=== PATIENT | female | born 1970 | race Caucasian/White ===

== ENCOUNTER 2016-07-13 10:41 | Emergency (ER) | payer SELFPAY ==
[2016-07-13 11:17] VITALS: RESP 18
--- NOTE | 2016-07-13 11:22 | ED ---
General Adult HPI - General Chief complaint: ENT Stated complaint: ear pain Time Seen by Provider: 07/13/16 11:08 Source: patient, RN notes reviewed Mode of arrival: ambulatory Limitations: no limitations - History of Present Illness Initial comments: Patient 46-year-old female who presents emergency room today with a chief complaint of decreased hearing out of the right ear. She does admit to a cerumen impaction. States she gets chronic cerumen impactions after upper respiratory infectious. States she just getting over an upper respiratory infection. States had decreased hearing out of the right ear. States she does not use Q-tips. States has had this problem several times in the past and has had need to have them flushed. She denies any other complaints or associated symptoms. Patient denies any recent fever, chills, shortness of breath, chest pain, back pain, abdominal pain, nausea or vomiting, numbness or tingling, dysuria or hematuria, constipation or diarrhea, headaches or visual changes, or any other complaints. - Related Data Home Medications Medication Instructions Recorded Confirmed No Known Home Medications [No 07/13/16 07/13/16 Known Home Medications] Allergies Allergy/AdvReac Type Severity Reaction Status Date / Time No Known Allergies Allergy Unverified 07/13/16 11:12 Review of Systems ROS Statement: Those systems with pertinent positive or pertinent negative responses have been documented in the HPI. ROS Other: All systems not noted in ROS Statement are negative. Past Medical History Past Medical History: No Reported History History of Any Multi-Drug Resistant Organisms: None Reported Past Surgical History: Cholecystectomy, Tubal Ligation Additional Past Surgical History / Comment(s): uterine surg eye Past Psychological History: No Psychological Hx Reported Smoking Status: Never smoker Past Alcohol Use History: Occasional Past Drug Use History: None Reported General Exam - General Exam Comments Initial Comments: General: The patient is awake and alert, in no distress, and does not appear acutely ill. Eye: Pupils are equal, round and reactive to light, extra-ocular movements are intact. No nystagmus. There is normal conjunctiva bilaterally. No signs of icterus. Ears, nose, mouth and throat: There are moist mucous membranes and no oral lesions. Bilateral cerumen impaction Neck: The neck is supple, there is no tenderness or JVD. Cardiovascular: There is a regular rate and rhythm. No murmur, rub or gallop is appreciated. Respiratory: Lungs are clear to auscultation, respirations are non-labored, breath sounds are equal. No wheezes, stridor, rales, or rhonchi. Musculoskeletal: Normal ROM, no tenderness. Strength 5/5. Sensation intact. Pulses equal bilaterally 2+. Neurological: A&O x 3. CN II-XII intact, There are no obvious motor or sensory deficits. Coordination appears grossly intact. Speech is normal. Skin: Skin is warm and dry and no rashes or lesions are noted. Psychiatric: Cooperative, appropriate mood & affect, normal judgment. Limitations: no limitations Course Vital Signs 07/13/16 11:07 Temperature 97.1 F L Pulse Rate 97 Respiratory 18 Rate Blood Pressure 109/70 O2 Sat by Pulse 99 Oximetry Medical Decision Making - Medical Decision Making Patient reexamined here in the emergency room shows no signs of distress. Patient's ears were flushed. The emergency room by nursing staff is feeling much better. Ear canals are clear. Patient will be discharged home. Disposition Clinical Impression: Bilateral impacted cerumen Disposition: HOME SELF-CARE Condition: Good Instructions: Cerumen Impaction (ED) Additional Instructions: Please follow-up with family doctor in the next 2 days of symptoms have not improved. Please return to emergency room if the symptoms increase or worsen or for any other concerns. Time of Disposition: 12:31
[2016-07-13 12:41] VITALS: BP 111/73; PULSE 90; TEMP 97
== END 2016-07-13 12:42 | disposition home or self-care (01) ==
LOC: EC 10:41
DX: H61.23 Impacted cerumen, bilateral (principal)
CPT/HCPCS: 99282

== ENCOUNTER → 2016-09-07 | Outpatient (CLI) | payer OTHER ==
--- NOTE | 2016-09-10 08:17 | MM ---
Reason for exam: screening (asymptomatic). Baseline mammogram. Physical Findings: Nurse did not find any significant physical abnormalities on exam. MG Screening Mammo w CAD Bilateral CC and MLO view(s) were taken. The breast tissue is heterogeneously dense. This may lower the sensitivity of mammography. There is no discrete abnormality. These results were verbally communicated with the patient and result sheet given to the patient on 09/07/16. ASSESSMENT: Negative, BI-RAD 1 RECOMMENDATION: Routine screening mammogram of both breasts in 1 year.
== END | disposition home or self-care (01) ==
LOC: RADMAMWWP 12:45
PROVIDERS: ATTEND Internal Medicine
DX: Z12.31 Encounter for screening mammogram for malignant neoplasm of breast (principal)

== ENCOUNTER → 2016-12-26 | Outpatient (CLI) | payer OTHER ==
--- NOTE | 2016-12-26 09:23 | MR ---
EXAMINATION TYPE: MR brain/cspine wo DATE OF EXAM: 12/26/2016 COMPARISON: NONE HISTORY: headaches, cervicalgia CONTRAST: Performed utilizing 0 mL intravenous MultiHance gadolinium contrast. TECHNIQUE: Multiplanar, multisequence imaging of the brain is performed on a 3.0 Ana Rosa magnet. Demye linating disease protocol with additional Sagittal Flair sequence is performed. Study is performed wi thin 24 hours of arrival to the hospital. FINDINGS: T2 White Matter Lesions Present : Yes Approximate Number of Lesions: Multiple scattered Locations Identified : Subcortical regions bilateral cerebrum Size of Largest Lesion(s): 1. 0.3 x 0.4 x 0.4 cm. Location: Right watershed region subcortical white matter Sequence 501 Image 19 (axial) and Sequence 601 Image 20 (coronal). 2. 0.6 x 1.0 x 0.2 cm. Location: Subcortical white matter left parietal lobe Sequence 501 Image 20 (axial) and Sequence 601 Image 14 (coronal). Enhancing Lesion(s) Present: Noncontrast study. Change from Prior: No prior Diffusion-weighted imaging is performed. No abnormal hyperintensity is present to suggest an acute i ntracranial infarct or acute ischemic change. Ventricles and sulci are appropriate for the patient age. There are no abnormal extra-axial fluid collections. The ventricular system and cisternal spaces are normal in size and appearance. The brain volume is age appropriate. The craniocervical junction ernesto ears within normal limits. The dural venous sinuses appear patent. . The visualized sinuses are clear. Visualized orbits are unremarkable. IMPRESSION: 1. Multiple bilateral scattered subcortical and deep white matter changes. These findings are nonspe cific. Differential could include, but is not limited to, etiologies such as multiple sclerosis, Lyme disease, vasculitis. MRI CERVICAL SPINE: CLINICAL HISTORY: Cervalgia TECHNIQUE: Multiplanar, multisequence imaging of the cervical spine is performed without and with IV contrast, 0 milliliters of gadolinium was given intravenously. COMPARISON: None. HISTORY: headaches, cervicalgia CONTRAST: Performed utilizing 0 mL intravenous MultiHance gadolinium contrast. TECHNIQUE: Multiplanar multiecho imaging on a 3.0 Ana Rosa magnet is performed through the cervical spin e. FINDINGS: The craniovertebral junction is normal. Vertebral body alignment is normal. No cord signal abnormality is evident. C7-T1: Mild left paracentral disc bulge has mild anterior thecal sac compression. No AP spinal canal stenosis is present. Neural foramen are patent.. C6-7: There is a large central disc herniation with moderate anterior thecal sac compression. Some mi ld cord contact without cord deformity may be present. No AP spinal canal stenosis present. Mild bila teral foraminal narrowing is present.. C5-6: Broad-based disc bulge is present with anterior thecal sac compression. This has cord contact a nd may have some mild cord flattening. No AP spinal canal stenosis present. Neural foramen are patent .. C4-5: There is a left paracentral disc herniation with moderate anterior thecal sac compression. No c ord contact or spinal canal stenosis present. Neural foramen are patent.. C3-4: Minimal disc bulge has anterior thecal sac flattening. No cord contact or spinal canal stenosis present. Neural foramen are patent.. C2-3: No focal disc herniation or significant disc bulge is evident. No spinal canal stenosis or alissa ral foraminal stenosis is present. Note is made of a cyst like area within the right lobe thyroid. This measures 1.2 x 1.6 cm in the ri ght lobe thyroid, previously not as hyperintense as expected for a simple cyst. Additional evaluation with ultrasound thyroid is recommended. IMPRESSIONS: 1. C4-5 left paracentral disc herniation with moderate anterior thecal sac compression. 2. Central disc bulging C5-6 with moderate anterior thecal sac compression and cord contact. 3. Central disc herniation with cord contact without deformity. 4. Fluidlike structure within the right lobe thyroid is not a simple cyst by MRI, additional evaluati on with ultrasound with attention of the right lobe thyroid is recommended.
== END | disposition home or self-care (01) ==
LOC: RADMRIMAIN 06:03
PROVIDERS: ATTEND Psychiatry & Neurology Neurology
DX: M50.221 Other cervical disc displacement at C4-C5 level (principal); R90.89 Other abnormal findings on diagnostic imaging of central nervous system
CPT/HCPCS: 70551; 72141

== ENCOUNTER → 2017-03-28 | Outpatient (CLI) | payer OTHER ==
--- NOTE | 2017-03-28 12:59 | US ---
EXAMINATION TYPE: US thyroid st tissue head/neck DATE OF EXAM: 03/28/2017 COMPARISON: MRI 12/26/2016 CLINICAL HISTORY: 46-year-old female E4.1 THYROID CYST ON MRI. TECHNIQUE: Multiple sonographic images of the thyroid gland are obtained. FINDINGS: GLAND SIZE: Right Lobe: 4.5 X 1.5 X 2.1 cm Overall Parenchyma: homogenous Left Lobe: 4.4 x 0.9 x 1.5 cm Overall Parenchyma: homogenous Isthmus Thickness: 0.3 cm NODULES RIGHT: # of nodules measured on right: 2 1. 2.4 X 1.4 x 1.5 cm solid hypoechoic nodule at the mid pole with well-defined margins; . This no dule is wider than tall and shows intranodular vascularity. Prior size: MRI 2.3 x 1.2 x 1.6 cm 2. 0.3 X 0.2 x 0.2 cm small hypoechoic nodule at the upper pole with well-defined margins; . This n odule is wider than tall and shows intranodular vascularity. Prior size: no prior LEFT: # of nodules measured on left: 1 1. 0.4 X 0.3 x 0.7 cm heterogeneous oval nodule at the mid pole with well-defined margins; . This nodule is wider than tall and shows intranodular vascularity. Prior size: no prior ISTHMUS: # of nodules measured in the isthmus: 0 Bilateral neck scanned, no evidence of lymphadenopathy. IMPRESSION: Dominant solid nodule measuring 2.4 cm in the right lobe. FNA can be considered.
== END | disposition home or self-care (01) ==
LOC: RADUSWWP 09:39
PROVIDERS: ATTEND Psychiatry & Neurology Neurology
DX: E04.1 Nontoxic single thyroid nodule (principal)
CPT/HCPCS: 76536

== ENCOUNTER 2017-06-17 20:06 | Emergency (ER) | payer OTHER ==
[2017-06-17 20:22] VITALS: RESP 18
[2017-06-17] MEDS ORDERED: SODIUM CHLORIDE 0.9% 1,000 ML IV ONE (20:37)
[2017-06-17] MEDS ORDERED: METOCLOPRAMIDE 5 MG/ML 2 ML VIAL IVP STA (20:37)
[2017-06-17] MEDS ORDERED: DEXAMETHASONE SOD PHOSPHATE 10 MG/ML 1 ML VIAL IV STA (20:37)
[2017-06-17] MEDS ORDERED: diphenhydrAMINE 50 MG/ML 1 ML VIAL IVP STA (20:37)
[2017-06-17] MEDS ORDERED: KETOROLAC 30 MG/ML 1 ML VIAL IVP STA (20:37)
--- NOTE | 2017-06-17 20:40 | ED ---
General Adult HPI - General Chief complaint: Recheck/Abnormal Lab/Rx Stated complaint: tingling Time Seen by Provider: 06/17/17 20:18 Source: EMS Mode of arrival: EMS Limitations: no limitations - History of Present Illness Initial comments: patient is a 47-year-old female who presents with a chief complaint of tingling and headache. Patient states she has had a migraine headache for 2 days. She is a history of migraine headaches. She states that today when she was at home on the phone with her ex- she started to have ascending tingling that started in her feet and ultimately was diffusely through her body. She states this episode lasted about 30 minutes. She cannot identify any inciting incidences. There are no aggravating or alleviating factors. The patient states that she has never been formally diagnosed with anxiety or she has had panic attacks before. The patient states currently she is a symptomatically. - Related Data Home Medications Medication Instructions Recorded Confirmed Rizatriptan Benzoate [Maxalt] 10 mg PO DAILY PRN 06/17/17 06/17/17 SUMAtriptan SUCCINATE [Imitrex] 50 mg PO BID PRN 06/17/17 06/17/17 Topiramate [Topamax] 50 mg PO BID 06/17/17 06/17/17 Allergies Allergy/AdvReac Type Severity Reaction Status Date / Time No Known Allergies Allergy Verified 06/17/17 20:30 Review of Systems ROS Statement: Those systems with pertinent positive or pertinent negative responses have been documented in the HPI. ROS Other: All systems not noted in ROS Statement are negative. Constitutional: Denies: fever Eyes: Reports: vision change ENT: Denies: throat pain Respiratory: Denies: cough Cardiovascular: Denies: chest pain Endocrine: Denies: fatigue Gastrointestinal: Denies: abdominal pain Genitourinary: Denies: dysuria Musculoskeletal: Denies: back pain Skin: Denies: rash Neurological: Reports: headache, paresthesias Psychiatric: Reports: anxiety Past Medical History Past Medical History: No Reported History History of Any Multi-Drug Resistant Organisms: None Reported Past Surgical History: Cholecystectomy, Tubal Ligation Additional Past Surgical History / Comment(s): uterine surg eye Past Psychological History: No Psychological Hx Reported Smoking Status: Never smoker Past Alcohol Use History: Occasional Past Drug Use History: None Reported General Exam Limitations: no limitations General appearance: alert, in no apparent distress Head exam: Present: atraumatic, normocephalic Eye exam: Present: normal appearance, PERRL, EOMI Respiratory exam: Present: normal lung sounds bilaterally Cardiovascular Exam: Present: regular rate, normal rhythm GI/Abdominal exam: Present: soft. Absent: distended, tenderness Rectal exam: Present: deferred Extremities exam: Present: normal inspection Back exam: Present: normal inspection Neurological exam: Present: alert, oriented X3, CN II-XII intact, normal gait, other (negative Romberg). Absent: motor sensory deficit Psychiatric exam: Present: normal affect, normal mood Skin exam: Present: warm, dry, intact Course Vital Signs 06/17/17 20:17 Temperature 98.6 F Pulse Rate 71 Respiratory 18 Rate Blood Pressure 126/76 O2 Sat by Pulse 98 Oximetry Medical Decision Making - Medical Decision Making patient presents with a chief complaint of headache and tingling. Currently in the emergency department, the patient is a symptom. She has a nonfocal neuro exam. Patient says that she does have a headache and that she typically does have migraines. She states that this is a normal migraine for her. Patient will be given a headache cocktail as we checked basic labs. 9:54 PM W evaluation of this patient is unremarkable. On reevaluation, her headache is gone and she does not have any paresthesias. Currently she is agreeable with discharge. The patient was instructed to follow-up with her primary care doctor or return to the emergency department if her symptoms worsen or change - Lab Data Result diagrams: 06/17/17 20:50 06/17/17 20:50 Lab Results 06/17/17 06/17/17 Range/Units 20:50 20:50 WBC 10.5 (3.8-10.6) k/uL RBC 4.39 (3.80-5.40) m/uL Hgb 14.0 (11.4-16.0) gm/dL Hct 41.4 (34.0-46.0) % MCV 94.3 (80.0-100.0) fL MCH 31.8 (25.0-35.0) pg MCHC 33.7 (31.0-37.0) g/dL RDW 12.3 (11.5-15.5) % Plt Count 278 (150-450) k/uL Neutrophils % 67 % Lymphocytes % 21 % Monocytes % 6 % Eosinophils % 2 % Basophils % 1 % Neutrophils # 7.0 (1.3-7.7) k/uL Lymphocytes # 2.2 (1.0-4.8) k/uL Monocytes # 0.7 (0-1.0) k/uL Eosinophils # 0.2 (0-0.7) k/uL Basophils # 0.1 (0-0.2) k/uL Sodium 140 (137-145) mmol/L Potassium 4.0 (3.5-5.1) mmol/L Chloride 108 H (98-107) mmol/L Carbon Dioxide 22 (22-30) mmol/L Anion Gap 10 mmol/L BUN 20 H (7-17) mg/dL Creatinine 1.10 H (0.52-1.04) mg/dL Est GFR (MDRD) Af Amer >60 (>60 ml/min/1.73 sqM) Est GFR (MDRD) Non-Af 54 (>60 ml/min/1.73 sqM) Glucose 97 (74-99) mg/dL Calcium 9.4 (8.4-10.2) mg/dL HCG, Qual Not Detected Disposition Clinical Impression: Migraine headache, Paresthesia Disposition: HOME SELF-CARE Condition: Good Instructions: Migraine Headache (ED) Referrals: Rik Lee MD [Primary Care Provider] - 1-2 days
[2017-06-17 21:12] LABS: Basophils # (A) 0.1 k/uL (0-0.2); Basophils % (A) 1 %; CH 32.2; CHCM 34.3; Eosinophils # (A) 0.2 k/uL (0-0.7); Eosinophils % (A) 2 %; HCT 41.4 % (34.0-46.0); Luc # (Auto) 0.25; Luc % (Auto) 2; Lymphocytes # (A) 2.2 k/uL (1.0-4.8); Lymphocytes % (A) 21 %; MCH 31.8 pg (25.0-35.0); MCHC 33.7 g/dL (31.0-37.0); MCV 94.3 fL (80.0-100.0); Mean Platelet Volume 7.4; Monocytes # (A) 0.7 k/uL (0-1.0); Monocytes % (A) 6 %; Neutrophils % (A) 67 %; RBC 4.39 m/uL (3.80-5.40); RDW 12.3 % (11.5-15.5); WBC 10.5 k/uL (3.8-10.6); WBC (Perox) 10.16
[2017-06-17 21:20] LABS: HCG,Qualitative Serum Not Detected
[2017-06-17 21:25] LABS: Anion Gap 10 mmol/L; Blood Urea Nitrogen 20 mg/dL (7-17); Calcium 9.4 mg/dL (8.4-10.2); Carbon Dioxide 22 mmol/L (22-30); Chloride 108 mmol/L (98-107); Glucose 97 mg/dL (74-99); Non-African American GFR(MDRD) 54 (>60 ml/min/1.73 sqM); Sodium 140 mmol/L (137-145)
[2017-06-17 22:09] VITALS: BP 116/74; PULSE 87; TEMP 98.8
== END 2017-06-17 22:13 | disposition home or self-care (01) ==
LOC: EC 20:06
DX: G43.909 Migraine, unspecified, not intractable, without status migrainosus (principal); R20.2 Paresthesia of skin
CPT/HCPCS: 36415; 93005; 80048; 85025; 84703; 99284; 96374; 96375 ×3; 96361; J1200; J1100; J2765; J1885

== ENCOUNTER 2017-07-25 20:24 | Emergency (ER) | payer OTHER ==
[2017-07-25 20:32] VITALS: RESP 18
[2017-07-25] MEDS ORDERED: IPRATROPIUM-ALBUTEROL 3 ML NEB INHALATION STA (21:07)
--- NOTE | 2017-07-25 21:20 | ED ---
URI HPI - General Chief Complaint: Upper Respiratory Infection Stated Complaint: SOB Time Seen by Provider: 07/25/17 20:52 Source: patient, RN notes reviewed, old records reviewed Mode of arrival: ambulatory Limitations: no limitations - History of Present Illness Initial Comments: Is a 47-year-old female presents today chief complaint of upper respiratory congestion and cough for the past week. She reports she's had a nonproductive cough. She states that she is coughing so hard today that she felt like she couldn't catch her breath. She is not a smoker. No history of asthma. She denies any fever or chills. She states she's been taking Mucinex. Patient denies any recent fever, chills, shortness of breath, chest pain, back pain, abdominal pain, nausea vomiting, numbness or tingling, dysuria or hematuria, constipation or diarrhea, headaches or visual changes, or any other current symptoms - Related Data Home Medications Medication Instructions Recorded Confirmed Rizatriptan Benzoate [Maxalt] 10 mg PO DAILY PRN 06/17/17 07/25/17 SUMAtriptan SUCCINATE [Imitrex] 50 mg PO BID PRN 06/17/17 07/25/17 Topiramate [Topamax] 50 mg PO BID 06/17/17 07/25/17 Acetaminophen [Tylenol Extra 1,000 mg PO Q6H PRN 07/25/17 07/25/17 Strength] diphenhydrAMINE [Benadryl] 25 mg PO HS PRN 07/25/17 07/25/17 guaiFENesin [Mucinex] 600 mg PO Q12HR PRN 07/25/17 07/25/17 Previous Rx's Medication Instructions Recorded Albuterol Inhaler [Ventolin Hfa 1 - 2 puff INHALATION Q6HR PRN #1 07/25/17 Inhaler] inhaler Azithromycin [Zithromax Z-pack] 250 mg PO DIRECTED #6 tab 07/25/17 methylPREDNISolone Dose Pack 4 mg PO DIRECTED #21 package 07/25/17 [Medrol Dose Pack] Allergies Allergy/AdvReac Type Severity Reaction Status Date / Time No Known Allergies Allergy Verified 07/25/17 21:12 Review of Systems ROS Statement: Those systems with pertinent positive or pertinent negative responses have been documented in the HPI. ROS Other: All systems not noted in ROS Statement are negative. Past Medical History Past Medical History: No Reported History Additional Past Medical History / Comment(s): migraines History of Any Multi-Drug Resistant Organisms: None Reported Past Surgical History: Cholecystectomy, Tubal Ligation Additional Past Surgical History / Comment(s): uterine surg, retinal detachment on bilat eyes, and muscle correction to bilat eyes when a child. Past Psychological History: No Psychological Hx Reported Smoking Status: Former smoker Past Alcohol Use History: Occasional Past Drug Use History: None Reported General Exam - General Exam Comments Initial Comments: 37-year-old female. No distress. Limitations: no limitations General appearance: alert, in no apparent distress Head exam: Present: atraumatic, normocephalic, normal inspection Eye exam: Present: normal appearance, PERRL, EOMI. Absent: scleral icterus, conjunctival injection, periorbital swelling ENT exam: Present: normal exam, mucous membranes moist Neck exam: Present: normal inspection. Absent: tenderness, meningismus, lymphadenopathy Respiratory exam: Present: normal lung sounds bilaterally. Absent: respiratory distress, wheezes, rales, rhonchi, stridor Cardiovascular Exam: Present: regular rate, normal rhythm, normal heart sounds. Absent: systolic murmur, diastolic murmur, rubs, gallop, clicks GI/Abdominal exam: Present: soft, normal bowel sounds. Absent: distended, tenderness, guarding, rebound, rigid Back exam: Present: normal inspection Neurological exam: Present: alert, oriented X3, CN II-XII intact Psychiatric exam: Present: normal affect, normal mood Course Vital Signs 07/25/17 07/25/17 07/25/17 20:28 22:01 22:10 Temperature 99.4 F Pulse Rate 125 H 83 83 Respiratory 18 Rate Blood Pressure 120/76 O2 Sat by Pulse 98 Oximetry 07/25/17 22:17 Temperature 98.5 F Pulse Rate 78 Respiratory 18 Rate Blood Pressure 119/76 O2 Sat by Pulse 100 Oximetry Medical Decision Making - Medical Decision Making 27-year-old female presents with cough and congestion for one week. She presented episode of severe coughing she could not catch her breath. This time patient's lungs sounds are somewhat clear, no significant wheezing noted. To give the patient a DuoNeb treatment. Chest x-ray was reviewed and normal. She reports she feels better after DuoNeb treatment. She days of a small staccato cough. Patient influenza testing is negative. This helped with the patient on Medrol Dosepak and azithromycin for bronchitis. Discussed using albuterol inhaler and cough medication as well. Patient understand treatment plan will comply. Return parameters were discussed. Discussed falling up with PCP. - Lab Data Lab Results 07/25/17 Range/Units 21:23 Influenza Type A RNA Not Detected (Not Detectd) Influenza Type B (PCR) Not Detected (Not Detectd) - Radiology Data Radiology results: report reviewed Chest x-rays reviewed and negative for any acute Abnormalities ' Disposition Clinical Impression: Bronchitis Disposition: HOME SELF-CARE Condition: Good Instructions: Upper Respiratory Infection (ED) Additional Instructions: Patient is to take medications as prescribed. Return to ED if any alarming signs or symptoms occur. Follow up with PCP. Prescriptions: Albuterol Inhaler [Ventolin Hfa Inhaler] 1 - 2 puff INHALATION Q6HR PRN #1 inhaler PRN Reason: Shortness Of Breath Azithromycin [Zithromax Z-pack] 250 mg PO DIRECTED #6 tab methylPREDNISolone Dose Pack [Medrol Dose Pack] 4 mg PO DIRECTED #21 package Referrals: Rik Lee MD [Primary Care Provider] - 1-2 days Time of Disposition: 22:04
--- NOTE | 2017-07-25 21:48 | XR ---
EXAMINATION TYPE: XR chest 2V DATE OF EXAM: 07/25/2017 COMPARISON: NONE INDICATION: Pain and flulike symptoms TECHNIQUE: Frontal and lateral views of the chest are obtained. FINDINGS: The heart size is normal. The pulmonary vasculature is normal. The lungs are clear. Nipple shadow may be at the right lung base. IMPRESSION: 1. No acute pulmonary process.
[2017-07-25 22:20] VITALS: BP 119/76; PULSE 78; TEMP 98.5
== END 2017-07-25 22:17 | disposition home or self-care (01) ==
LOC: EC 20:24
DX: J40 Bronchitis, not specified as acute or chronic (principal); G43.909 Migraine, unspecified, not intractable, without status migrainosus; Z87.891 Personal history of nicotine dependence; Z79.899 Other long term (current) drug therapy
CPT/HCPCS: 71046; 87502; 94640; 99284

== ENCOUNTER → 2017-09-16 | Outpatient (CLI) | payer OTHER ==
--- NOTE | 2017-09-17 14:32 | MM ---
Reason for exam: screening (asymptomatic). Last mammogram was performed 1 year ago. Physical Findings: A clinical breast exam by your physician is recommended on an annual basis and results should be correlated with mammographic findings. MG Screening Mammo w CAD Bilateral CC and MLO view(s) were taken. Prior study comparison: September 07, 2016, bilateral MG screening mammo w CAD. The breast tissue is heterogeneously dense. This may lower the sensitivity of mammography. No suspicious abnormality. No significant changes when compared with prior studies. ASSESSMENT: Negative, BI-RAD 1 RECOMMENDATION: Routine screening mammogram of both breasts in 1 year.
== END | disposition home or self-care (01) ==
LOC: RADMAMWWP 16:54
PROVIDERS: ATTEND Internal Medicine
DX: Z12.31 Encounter for screening mammogram for malignant neoplasm of breast (principal)
CPT/HCPCS: 77067

== ENCOUNTER 2017-12-24 16:12 | Emergency (ER) | payer OTHER ==
--- NOTE | 2017-12-24 17:49 | CT ---
EXAMINATION TYPE: CT brain wo con DATE OF EXAM: 12/24/2017 COMPARISON: NONE HISTORY: CURRAN after head injury x1 day ago CT DLP: 999 mGycm. Automated Exposure Control for Dose Reduction was Utilized. TECHNIQUE: CT scan of the head is performed without contrast. FINDINGS: The ventricles and sulci appear normal. There is no mass effect nor midline shift. There is no sign of intracranial hemorrhage. The calvarium is intact. IMPRESSION: Negative CT scan of the brain.
--- NOTE | 2017-12-24 17:55 | ED ---
Head Injury HPI - General Chief complaint: Head Injury Stated complaint: Head Injury Time Seen by Provider: 12/24/17 17:06 Source: patient Mode of arrival: ambulatory Limitations: no limitations - History of Present Illness Initial comments: 47-year-old female patient presents to the emergency department today for evaluation of right-sided headache. Patient states that he yesterday evening she was getting into a car when she hit the right side of her head on the door frame. Patient states that she felt okay after that, denies any loss of consciousness. States that this morning she woke up feeling very nauseated and had a headache on the right side. Patient states that throughout the day today she has only pulsating to the area. Patient denies any dizziness, blurred vision, double vision, vomiting, weakness, numbness, or tingling today. Denies any other injuries. Patient denies any neck pain, back pain, chest pain, shortness of breath, abdominal pain, or difficulties with bowel movements or urination. - Related Data Home Medications Medication Instructions Recorded Confirmed Rizatriptan Benzoate [Maxalt] 10 mg PO DAILY PRN 06/17/17 12/24/17 SUMAtriptan SUCCINATE [Imitrex] 50 mg PO BID PRN 06/17/17 12/24/17 Topiramate [Topamax] 50 mg PO BID 06/17/17 12/24/17 Acetaminophen [Tylenol Extra 1,000 mg PO Q6H PRN 07/25/17 12/24/17 Strength] diphenhydrAMINE [Benadryl] 25 mg PO HS PRN 07/25/17 12/24/17 guaiFENesin [Mucinex] 600 mg PO Q12HR PRN 07/25/17 12/24/17 Previous Rx's Medication Instructions Recorded Albuterol Inhaler [Ventolin Hfa 1 - 2 puff INHALATION Q6HR PRN #1 07/25/17 Inhaler] inhaler Azithromycin [Zithromax Z-pack] 250 mg PO DIRECTED #6 tab 07/25/17 methylPREDNISolone Dose Pack 4 mg PO DIRECTED #21 package 07/25/17 [Medrol Dose Pack] Allergies/Adverse reactions: Allergies Allergy/AdvReac Type Severity Reaction Status Date / Time No Known Allergies Allergy Verified 12/24/17 16:57 Review of Systems ROS Statement: Those systems with pertinent positive or pertinent negative responses have been documented in the HPI. ROS Other: All systems not noted in ROS Statement are negative. Past Medical History Past Medical History: No Reported History Additional Past Medical History / Comment(s): migraines History of Any Multi-Drug Resistant Organisms: None Reported Past Surgical History: Cholecystectomy, Tubal Ligation Additional Past Surgical History / Comment(s): uterine surg, retinal detachment on bilat eyes, and muscle correction to bilat eyes when a child. Past Psychological History: No Psychological Hx Reported Smoking Status: Former smoker Past Alcohol Use History: Occasional Past Drug Use History: None Reported General Exam Limitations: no limitations General appearance: alert, in no apparent distress, other (This is a well- developed, well-nourished adult female patient in no acute distress. Vital signs upon presentation are temperature 98.6F, pulse 88, respirations 18, blood pressure 120/79, pulse ox 100% on room air.) Head exam: Present: other (Has small area of soft tissue swelling to the right parietal scalp. No bony step-off or deformity noted to palpation of the area.) Eye exam: Present: normal appearance, PERRL, EOMI. Absent: scleral icterus, conjunctival injection, nystagmus, periorbital swelling ENT exam: Present: normal exam, normal oropharynx, mucous membranes moist Neck exam: Present: normal inspection, full ROM, other (Nontender, no step-off, no deformity to firm midline palpation of the posterior cervical spine. Full range of motion without pain or limitation.). Absent: tenderness, meningismus, lymphadenopathy Respiratory exam: Present: normal lung sounds bilaterally. Absent: respiratory distress, wheezes, rales, rhonchi, stridor Cardiovascular Exam: Present: regular rate, normal rhythm, normal heart sounds. Absent: systolic murmur, diastolic murmur, rubs, gallop, clicks GI/Abdominal exam: Present: soft, normal bowel sounds. Absent: distended, tenderness, guarding, rebound, rigid Neurological exam: Present: alert, oriented X3, CN II-XII intact, other ( Strength in all 4 extremities is 5/5.) Psychiatric exam: Present: normal affect, normal mood Skin exam: Present: warm, dry, intact, normal color. Absent: rash Course Vital Signs 12/24/17 16:54 Temperature 98.6 F Pulse Rate 88 Respiratory 18 Rate Blood Pressure 120/79 O2 Sat by Pulse 100 Oximetry Medical Decision Making - Medical Decision Making 47 year-old female patient presented to the emergency department today for complaints of headache and nausea after hitting her head yesterday. Physical examination does reveal some soft tissue swelling to the right parietal scalp. Patient is neurologically intact. Did perform CT of the brain which showed no acute intracranial abnormalities. We did discuss possibility of a concussion. She is instructed follow up with her primary care physician for recheck in 1-2 days. She is instructed to decrease mental and physical stimulation. Return parameters discussed in detail. She verbalizes understanding and agrees with this plan. - Radiology Data Radiology results: report reviewed, image reviewed CT brain without contrast was performed. The ventricles and sulci appear normal. There is no mass effect or midline shift. There is no sign of intracranial hemorrhage. The calvarium is intact. Impression by Dr. Martinez shows negative computed tomography scan of the brain. Disposition Clinical Impression: Concussion Disposition: HOME SELF-CARE Condition: Good Instructions: Concussion (ED) Additional Instructions: Decreased mental and physical stimulation. No physical activity, TV, or computer screens. Rest is much as possible. Follow-up with your primary care physician for recheck in 1-2 days. Return here immediately for any new, worsening, or concerning symptoms. Is patient prescribed a controlled substance at d/c from ED?: No Referrals: Rik Lee MD [Primary Care Provider] - 1-2 days Time of Disposition: 17:55
[2017-12-24 18:35] VITALS: BP 118/72; PULSE 81; RESP 16; TEMP 98.7
== END 2017-12-24 18:34 | disposition home or self-care (01) ==
LOC: EC 16:12
DX: S06.0X0A Concussion without loss of consciousness, initial encounter (principal); Z87.891 Personal history of nicotine dependence; Z86.69 Personal history of other diseases of the nervous system and sense organs; Z79.899 Other long term (current) drug therapy; W22.8XXA Striking against or struck by other objects, initial encounter; Y92.89 Other specified places as the place of occurrence of the external cause
CPT/HCPCS: 70450; 99283

== ENCOUNTER → 2018-01-31 | Outpatient (CLI) | payer OTHER ==
--- NOTE | 2018-01-31 15:35 | US ---
EXAMINATION TYPE: US pelvic complete DATE OF EXAM: 01/31/2018 COMPARISON: NONE CLINICAL HISTORY: R10.2 FEMALE PELVIC PAIN. RLQ PAIN TECHNIQUE: Transabdominal (TA). Transabdominal sonographic images of the pelvis were acquired. Date of LMP: 01/23/2018 EXAM MEASUREMENTS: Uterus: 10.3 X 4.8 X 6.5 cm Endometrial Stripe: 1.2 cm Right Ovary: 2.8 X 1.5 X 2.6 cm Left Ovary: 3.0 X 2.4 X 1.6 cm 1. Uterus: Uterus is retroverted 2. Endometrium: Normal 3. Right Ovary: Follicles are present 4. Left Ovary: Normal 5. Bilateral Adnexa: Normal 6. Posterior cul-de-sac: No free fluid IMPRESSION: 1. Normal pelvic ultrasound
== END | disposition home or self-care (01) ==
LOC: RADUSWWP 10:11
PROVIDERS: ATTEND Internal Medicine
DX: R10.2 Pelvic and perineal pain (principal)
CPT/HCPCS: 76856

== ENCOUNTER 2018-03-07 15:32 | Emergency (ER) | payer OTHER ==
[2018-03-07 15:59] VITALS: BP 109/67; PULSE 80; RESP 18; TEMP 97
--- NOTE | 2018-03-07 16:58 | XR ---
EXAMINATION TYPE: XR foot complete RT DATE OF EXAM: 03/07/2018 COMPARISON: NONE HISTORY: Foot pain and ankle pain TECHNIQUE: 3 views FINDINGS: Metatarsals are intact. I see no fracture nor dislocation. There are no erosions. IMPRESSION: Negative right foot exam.
--- NOTE | 2018-03-07 16:59 | ED ---
Lower Extremity Injury HPI - General Chief Complaint: Extremity Injury, Lower Stated Complaint: rt foot injury Time Seen by Provider: 03/07/18 15:56 Source: patient Mode of arrival: ambulatory Limitations: no limitations - History of Present Illness Initial Comments: This is a 47-year-old female past medical history of migraines presents today for chief complaint of right lateral foot pain. Patient states that yesterday she noticed pain in the right foot dorsal aspect along the lateral edge. Patient status pain to be 7 out of 10 aching pain that increases walking and radiates proximally towards the right ankle. Patient denies known fall or trauma. She is not sure if she rolled it or slept on it wrong. Patient denies history of gout, erythema, warmth, tenderness, numbness, tingling, paresthesias , color change, coolness of extremity, fever, chills, calf pain/swelling, edema or any other symptoms. Remainder of ROS (-). Upon arrival pt VS stable. - Related Data Home Medications Medication Instructions Recorded Confirmed Rizatriptan Benzoate [Maxalt] 10 mg PO DAILY PRN 06/17/17 03/07/18 SUMAtriptan SUCCINATE [Imitrex] 50 mg PO BID PRN 06/17/17 03/07/18 diphenhydrAMINE [Benadryl] 25 mg PO HS PRN 03/07/18 03/07/18 Allergies Allergy/AdvReac Type Severity Reaction Status Date / Time No Known Allergies Allergy Verified 03/07/18 16:19 Review of Systems ROS Statement: Those systems with pertinent positive or pertinent negative responses have been documented in the HPI. ROS Other: All systems not noted in ROS Statement are negative. Constitutional: Denies: fever, chills, night sweats ENT: Denies: hearing loss Respiratory: Denies: cough, dyspnea, wheezes, hemoptysis, stridor Cardiovascular: Denies: chest pain, palpitations, dyspnea on exertion Gastrointestinal: Denies: abdominal pain, nausea, vomiting, diarrhea, constipation Genitourinary: Denies: urgency, dysuria, frequency Skin: Denies: rash, lesions, change in color Neurological: Denies: headache, weakness, numbness, paresthesias, confusion, abnormal gait Past Medical History Past Medical History: No Reported History Additional Past Medical History / Comment(s): migraines History of Any Multi-Drug Resistant Organisms: None Reported Past Surgical History: Cholecystectomy, Tubal Ligation Additional Past Surgical History / Comment(s): uterine surg, retinal detachment on bilat eyes, and muscle correction to bilat eyes when a child. Past Psychological History: No Psychological Hx Reported Smoking Status: Former smoker Past Alcohol Use History: Occasional Past Drug Use History: None Reported General Exam - General Exam Comments Initial Comments: General: The patient is awake and alert, in no distress, and does not appear acutely ill. Eye: Pupils are equal, round and reactive to light, extra-ocular movements are intact. No nystagmus. There is normal conjunctiva bilaterally. No signs of icterus. Ears, nose, mouth and throat: There are moist mucous membranes and no oral lesions. Cardiovascular: There is a regular rate and rhythm. No murmur, rub or gallop is appreciated. Respiratory: Lungs are clear to auscultation, respirations are non-labored, breath sounds are equal. No wheezes, stridor, rales, or rhonchi. Musculoskeletal: Upon inspection of the ankle joint there are no apparent deformities, palpable step-offs or defects. There is no soft tissue swelling, erythema. Normal ROM plantar and dorsiflexion, inversion and eversion of the ankle joints bilaterally, tenderness with inversion of the right ankle. Strength 5/5 with all movements. Mild tenderness to palpation over the lateral dorsal aspect of the right foot. Sensation intact of the lower extremities including the feet equally bilaterally. Dorsalis pedis and posterior tibial pulses equal bilaterally 2+. Capillary refill of the toes bilaterally less than 2 seconds, instant refill. (-) severino. No calf swelling. Neurological: A&O x 3. CN II-XII intact, There are no obvious motor or sensory deficits. Coordination appears grossly intact. Speech is normal. Skin: Skin is warm and dry and no rashes or lesions are noted. Psychiatric: Cooperative, appropriate mood & affect, normal judgment. Limitations: no limitations Course Vital Signs 03/07/18 15:56 Temperature 97 F L Pulse Rate 80 Respiratory 18 Rate Blood Pressure 109/67 O2 Sat by Pulse 99 Oximetry Medical Decision Making - Medical Decision Making XR of the right foot and ankle obtained, revealing no acute fracture or dislocation. Pt denied pain management at this time. Pt was placed in RELL bandage and told to f/u with PCP in 1-2 days. pt was given RICE instruction, as well as instruction to use ibuprofen and tylenol for pain mgmt as needed. Pt agreed with plan. Case discussed with Dr. Moulton, at this time we feel pt has a foot sprain. pt is neurovascularly intact, and at this time we feel pt is stable for discharge. Pt denied questions at this time. pt d/c in stable condition. Disposition Clinical Impression: Right foot sprain, Right foot pain Disposition: HOME SELF-CARE Condition: Good Instructions: Foot Sprain (ED), R.I.C.E. Treatment (ED) Additional Instructions: Please use over the counter pain medication as discussed. Please follow-up with family doctor in the next 2 days, if symptoms persist for >1 week we recommend orthopedic referral from primary care provider. Please return to emergency room if the symptoms increase or worsen or for any other concerns. Is patient prescribed a controlled substance at d/c from ED?: No Referrals: Rik Lee MD [Primary Care Provider] - 1-2 days Time of Disposition: 17:01
--- NOTE | 2018-03-07 16:59 | XR ---
EXAMINATION TYPE: XR ankle complete RT DATE OF EXAM: 03/07/2018 COMPARISON: NONE HISTORY: Ankle pain TECHNIQUE: 3 views FINDINGS: Ankle mortise is anatomic. I see no fracture nor dislocation. Joint spaces are normal. IMPRESSION: Negative right ankle exam.
== END 2018-03-07 17:11 | disposition home or self-care (01) ==
LOC: EC 15:32
DX: S93.601A Unspecified sprain of right foot, initial encounter (principal); Z87.891 Personal history of nicotine dependence; X50.9XXA Other and unspecified overexertion or strenuous movements or postures, initial encounter
CPT/HCPCS: 99283